=== PATIENT | female | born 1970 | race Caucasian/White ===

== ENCOUNTER 2016-07-12 19:09 | Emergency (ER) | payer OTHER ==
[~2016-07-12] VITALS: Ht 170.2 cm; Wt 86.0 kg
[~2016-07-12 19:09] MED LIST: CHOL400T PO; CNC/36 PO; LEVO100T7 PO; METH10TA4 PO; MULTTAB58 PO; OMEGCAP2 PO
[2016-07-12 19:18] VITALS: TEMP 37; Ht 170.2 cm; Wt 86.0 kg
[2016-07-12] MEDS ORDERED: IBUPROFEN 200 MG TAB PO STA (20:12)
--- NOTE | 2016-07-12 20:32 | EMERGENCY ROOM VISIT NOTE ---
ED Visit Note First contact with patient: 20:04 CHIEF COMPLAINT: Left ankle injury 12 hours ago HISTORY OF PRESENT ILLNESS: Patient is a 46-year-old white female who presents to the emergency department for evaluation of left ankle pain. She was walking down her basement steps when she missed a step, rolling the left ankle awkwardly. She wrapped the ankle with an Jorge wrap, iced and elevated and took ibuprofen for discomfort. She was unable to bear weight due to pain. She rates her discomfort a 4/10 presently. Denies numbness or tingling. No foot or knee pain. REVIEW OF SYSTEMS: Review of systems as per HPI. All other systems reviewed were negative. At least 6 systems reviewed. PMH: Electronic medical records are reviewed and summarized as above/below. See Problem List. SOCIAL HISTORY: Patient lives at home with her family. Smoker.. PHYSICAL EXAM: Vital Signs: Reviewed Nurse's notes. MENTAL STATUS: Alert, oriented, and cooperative. The left ankle is swollen and tender over both the medial and lateral aspect. Joint effusion is palpable. Skin is intact and there is no ligamentous instability. No pain over the 5th metatarsal or fibular head. Lisfranc joint is negative. There is no deformity. The foot and toes are warm and well-perfused. Sensation to pain and light touch is intact. EMERGENCY DEPARTMENT COURSE: X-ray reveals demonstrates soft tissue swelling and an avulsion fracture off the ED distal fibula. A compression sleeve and gel splint were applied to the ankle under my direction and the position was satisfactory. Crutches were issued and patient was instructed on a non weight bearing gait. Differential diagnosis include foot verses ankle sprain/fracture, contusion, dislocation. LEFT ANKLE MIN 3 VIEWS ROUTINE CLINICAL HISTORY: Left ankle pain status post trauma COMPARISON: None. DISCUSSION: There is a tiny sliver-like avulsion fracture adjacent the lateral malleolar tip. This is likely old. There is a plantar calcaneal spur. The ankle mortise appears intact. There is mild bimalleolar soft tissue swelling. IMPRESSION: Tiny sliver-like avulsion fracture adjacent the lateral malleolar tip, likely old. Soft tissue swelling. Problem List Medical Problems: (1) ADD (attention deficit disorder) Status: Chronic (2) Hypothyroidism, Unspecified Status: Chronic Current/Historical Medications Scheduled Cholecalciferol (Vitamin D3), 1 TAB PO QAM Levothyroxine Sodium (Levothyroxine Sodium), 1 TAB PO QAM Methylphenidate (Ritalin), 20 MG PO 5XWK Methylphenidate Hcl (Concerta), 54 MG PO DAILY Multiple Vitamin (Multivitamin), 1 TAB PO QAM [place]-3 Fatty Acids (Fish Oil), 1 CAP PO QAM Allergies Coded Allergies: Erythromycin (Verified Allergy, Unknown, STOMACH ULCERS, 02/23/15) Vital Signs Date Time Temp Pulse Resp B/P Pulse Ox O2 Delivery O2 Flow Rate FiO2 07/12/16 19:18 37.0 103 19 136/93 96 Room Air Medications Administered Medications (Trade) Dose Ordered Sig/Mulu Route Start Time Stop Time Status Last Admin Dose Admin Ibuprofen (Advil Tab) 200 mg NOW STAT PO 07/12/16 20:12 07/12/16 20:14 DC 07/12/16 20:51 200 MG Departure Information Impression Primary Impression: Left ankle sprain Referrals No Doctor, Assigned (PCP) Patient Instructions My [facility] Additional Instructions Ibuprofen(Motrin, Advil) may be used for fever or pain. Use 600mg every six hours as needed. Take with food. Avoid using more than 2400mg in a 24 hour period. Do not use 2400mg per day for more than three consecutive days without physician direction. Prolonged inappropriate use can lead to stomach upset or ulcers. This medication can be taken if you need to drive, work, or perform activities which may be dangerous when taking narcotic pain medication. (AND/OR) Acetaminophen(Tylenol) may be used for fever or pain. Use 1000mg every six hours as needed. Avoid using more than 3000mg in a 24 hour period. This medication can be taken if you need to drive, work, or perform activities which may be dangerous when taking narcotic pain medication. Ice compresses for 20 minutes at a time four times daily for 2-3 days. Use the gel splint and crutches as instructed. Rest and elevate your injury. Continue current medications. Return to the ER immediately for any numbness, tingling, severe pain, extreme swelling in the extremity or as needed. Followup with your family doctor or orthopedic surgery if no improvement in 5-7 days.
[2016-07-12] MEDS ORDERED: CNC/54 PO (20:45)
[2016-07-12] MEDS ORDERED: RTL20 PO (20:45)
[2016-07-12 20:54] VITALS: BP 134/97; PULSE 90; O2SAT 97
== END 2016-07-12 20:54 | disposition home or self-care (01) ==
LOC: C.EDB 19:11 → C.EDD 20:54
DX: S93.402A Sprain of unspecified ligament of left ankle, initial encounter (principal); W10.8XXA Fall (on) (from) other stairs and steps, initial encounter; E03.9 Hypothyroidism, unspecified; F90.9 Attention-deficit hyperactivity disorder, unspecified type; F17.200 Nicotine dependence, unspecified, uncomplicated; Z79.899 Other long term (current) drug therapy; Z88.3 Allergy status to other anti-infective agents

== ENCOUNTER → 2016-12-16 | Outpatient (CLI) | payer OTHER ==
[~2016-12-16] MED LIST changes: -CNC/36 PO; +CNC/54 PO; -METH10TA4 PO; +RTL20 PO
--- NOTE | 2016-12-16 13:45 | DIAGNOSTIC IMAGING REPORT ---
L FOOT MIN 3 VIEWS CLINICAL HISTORY: Left foot pain. Trauma. COMPARISON: None. DISCUSSION: The bones are osteopenic. No acute fractures are visualized. There are no subluxations. There is a plantar calcaneal spur. There are mild degenerative changes present. IMPRESSION: No fractures identified. Electronically signed by: Pablo Jones M.D. 12/16/2016 1:44 PM Dictated Date/Time: 12/16/2016 1:43 PM
--- NOTE | 2016-12-16 13:46 | DIAGNOSTIC IMAGING REPORT ---
LEFT ANKLE 3 VIEWS CLINICAL HISTORY: Left ankle pain. Recent fall. FINDINGS: 3 views of left ankle are compared to study dated 07/12/2016. The skeletal structures are osteopenic. No fracture is seen. The ankle mortise is intact. There is a large plantar calcaneal enthesophyte. No joint effusion is identified. Mild soft tissue swelling is noted around the ankle. IMPRESSION: 1. Mild soft tissue swelling with no radiographic evidence of left ankle fracture. 2. Osteopenia and large plantar heel spur as above. Electronically signed by: Tushar Licea M.D. 12/16/2016 1:45 PM Dictated Date/Time: 12/16/2016 1:43 PM
== END | disposition home or self-care (01) ==
LOC: C.RDSM 13:36
PROVIDERS: ATTEND Family Medicine
DX: M25.572 Pain in left ankle and joints of left foot (principal); M85.872 Other specified disorders of bone density and structure, left ankle and foot